=== PATIENT | male | born 1970 | race Caucasian/White ===

== ENCOUNTER 2020-01-26 17:51 | Emergency (ER) | payer OTHER ==
[~2020-01-26] VITALS: Ht 193 cm; Wt 127.0 kg
[~2020-01-26 17:51] MED LIST: ALPR1TAB2 PO
[2020-01-26 18:02] VITALS: BP_SYST 158
== END 2020-01-26 20:00 | disposition left against medical advice (07) ==
LOC: SED 17:51
DX: M79.671 Pain in right foot (principal); Z53.21 Procedure and treatment not carried out due to patient leaving prior to being seen by health care provider